=== PATIENT | female | born 1995 | race Caucasian/White ===

== ENCOUNTER 2017-08-25 11:46 | Emergency (ER) | payer OTHER ==
[~2017-08-25] VITALS: Ht 152.4 cm; Wt 74.8 kg
[2017-08-25] MEDS ORDERED: HYDROCODONE-AP1 EAC6 PO ×2 (12:20→12:23)
[2017-08-25] MEDS ORDERED: CIPROFLOXIN HC2.5 M1 OPHTHALMIC ×2 (12:20→12:23)
[2017-08-25 14:02] VITALS: BP 126/78
== END 2017-08-25 14:03 | disposition home or self-care (01) ==
LOC: ER 11:46
DX: H16.001 Unspecified corneal ulcer, right eye (principal); Z91.041 Radiographic dye allergy status; Z97.3 Presence of spectacles and contact lenses